=== PATIENT | male | born 1975 | race Caucasian/White ===

== ENCOUNTER 2018-10-17 00:27 | Emergency (ER) | payer OTHER ==
[~2018-10-17] VITALS: Ht 185.4 cm; Wt 88.5 kg
[2018-10-17] MEDS ORDERED: BUSPIRONE HCL7.5 MG PO (00:32)
[2018-10-17] MEDS ORDERED: FLUOXETINE HYDR20 M1 PO (00:33)
[2018-10-17 01:07] LABS: BILIRUBIN NEGATIVE (NEGATIVE); BLOOD NEGATIVE (NEGATIVE); CLARITY CLOUDY (CLEAR); COLOR YELLOW (YELLOW); GLUCOSE NEGATIVE (NEGATIVE); KETONE NEGATIVE (NEGATIVE); LEUKO ESTERASE NEGATIVE (NEGATIVE); NITRITE NEGATIVE (NEGATIVE); UROBILINOGEN 0.2 E.U./dl (0.2-1.0)
[2018-10-17 01:14] LABS: BACTERIA 2+; EPITHELIAL CELLS 0-2; WBC 0-2 wbc/hpf (0-5)
== END 2018-10-17 03:08 | disposition home or self-care (01) ==
LOC: ED 00:27
PROVIDERS: Emergency Medicine
DX: N48.89 Other specified disorders of penis (principal); R10.9 Unspecified abdominal pain; R30.9 Painful micturition, unspecified; Z91.018 Allergy to other foods; Z79.899 Other long term (current) drug therapy